=== PATIENT | female | born 1975 | race Caucasian/White ===

== ENCOUNTER 2016-12-24 09:40 | Emergency (ER) | payer OTHER ==
[~2016-12-24] VITALS: Ht 162.6 cm; Wt 68.0 kg
[2016-12-24 09:40] VITALS: BP 119/61
[2016-12-24] MEDS ORDERED: SING5CHW23 PO (09:57)
[2016-12-24] MEDS ORDERED: ZOLO50TA PO (09:57)
[2016-12-24 11:11] LABS: BASO % 0.3 % (0.0-1.0); EOS # 0.1 10^3/uL (0.0-0.50); EOS % 1.1 % (0.0-3.0); IMMATURE GRANULOCYTE % 0.2 % (0-0); LYMPH % 19.4 % (24.0-44.0); MEAN CORPUSCULAR HEMOGLOBIN 26.2 pg (27.0-33.0); MEAN CORPUSCULAR HGB CONC 32.6 g/dl (32.0-36.5); MEAN CORPUSCULAR VOLUME 80.2 fl (80.0-96.0); MONO # 0.9 10^3/uL (0.0-0.8); NEUTROPHILS # 7.3 10^3/uL (1.8-7.7); PLATELET COUNT, AUTOMATED 261 10^3/uL (150-450); RED CELL DISTRIBUTION WIDTH 14.6 % (11.5-14.5); WHITE BLOOD COUNT 10.4 10^3/uL (4.0-10.0)
[2016-12-24 11:32] LABS: ALBUMIN 4.1 GM/DL (3.2-5.2); ALBUMIN/GLOBULIN RATIO 1.41 (1.00-1.93); ALKALINE PHOSPHATASE 58 U/L (45-117); ALT/SGPT 24 U/L (12-78); ANION GAP 4 MEQ/L (8-16); AST/SGOT 20 U/L (7-37); BILIRUBIN,TOTAL 0.4 MG/DL (0.2-1.0); BLOOD UREA NITROGEN 10 MG/DL (7-18); CARBON DIOXIDE LEVEL 29 MEQ/L (21-32); CHLORIDE LEVEL 105 MEQ/L (98-107); CREATININE FOR GFR 0.72 MG/DL (0.55-1.02); GLOMERULAR FILTRATION RATE > 60.0 (>58); GLUCOSE, FASTING 83 MG/DL (70-105); POTASSIUM SERUM 4.4 MEQ/L (3.5-5.1); SODIUM LEVEL 138 MEQ/L (136-145)
[2016-12-24] MEDS ORDERED: ISOVUE-370 76% 100ML VIAL (Q9967) As Ordered ONE (11:53)
--- NOTE | 2016-12-24 12:51 | REP ---
CT ABDOMEN AND PELVIS WITH IV CONTRAST: TECHNIQUE: Axial contrast enhanced images from the lung bases to the pubic symphysis using 100 mL Isovue 370 intravenous contrast material with multiplanar reformations. Visualized lung bases demonstrate no evidence of acute infiltrate. The liver, gallbladder, spleen, adrenals, pancreas, and kidneys appear unremarkable. There is no hydronephrosis. There is no abdominal aortic aneurysm. There is no adenopathy, free air or free fluid. I see no bowel wall thickening. There is no evidence of appendicitis. There is a small hiatal hernia. There is a dominant follicle in the left ovary measuring 2 cm in diameter. There is no other evidence of pelvic mass. Urinary bladder appear unremarkable. IMPRESSION: Small hiatal hernia. Dominant follicle left ovary 2 cm in diameter. No bowel wall thickening or appendicitis. No free air or free fluid. Signed by Marcin Otero MD 12/24/2016 04:18 P
== END 2016-12-24 12:42 | disposition home or self-care (01) ==
LOC: EDBD 09:40 → M ED 09:40
DX: R10.9 Unspecified abdominal pain (principal); F41.9 Anxiety disorder, unspecified; J30.2 Other seasonal allergic rhinitis; K44.9 Diaphragmatic hernia without obstruction or gangrene; N83.02 Follicular cyst of left ovary; Z79.899 Other long term (current) drug therapy; Z88.6 Allergy status to analgesic agent; Z88.5 Allergy status to narcotic agent
CPT/HCPCS: 36415; 74177; 80053; 81001; 83690; 85025; 87086; 99284; Q9967

== ENCOUNTER → 2017-06-17 | Outpatient (REF) | payer OTHER ==
[2017-06-20 14:15] LABS: HPV HYBRID CAPTURE II Negative (Negative)
== END ==
LOC: M LAB REF 19:20
DX: Z12.4 Encounter for screening for malignant neoplasm of cervix (principal)

== ENCOUNTER 2018-04-28 22:59 | Emergency (ER) | payer OTHER ==
[~2018-04-28] VITALS: Ht 162.6 cm; Wt 68.2 kg
[~2018-04-28 22:59] MED LIST: SING5CHW23 PO; ZOLO50TA PO
[2018-04-28 23:27] LABS: HEMOGLOBIN 9.8 g/dl (12.0-15.5); MEAN CORPUSCULAR HEMOGLOBIN 23.4 pg (27.0-33.0); MEAN CORPUSCULAR HGB CONC 31.6 g/dl (32.0-36.5); PLATELET COUNT, AUTOMATED 340 10^3/uL (150-450); RED BLOOD COUNT 4.19 10^6/uL (4.00-5.40); WHITE BLOOD COUNT 12.8 10^3/uL (4.0-10.0)
[2018-04-28] MEDS ORDERED: GI COCKTAIL 50ML BTL(HYOSCYAMINE/MAALOX/LIDOCAINE VISCOUS)(1:3:1) PO ONE (23:30)
[2018-04-28 23:37] LABS: INR 0.91; PROTHROMBIN TIME 12.3 SECONDS (12.1-14.4)
[2018-04-28 23:38] LABS: PARTIAL THROMBOPLASTIN TIME 25.9 SECONDS (25.4-37.6)
[2018-04-28 23:40] LABS: D-DIMER QUANT 335.76 ng/ml (<500)
[2018-04-28 23:47] LABS: ANISOCYTOSIS 1+; ATYPICAL LYMPH 4 % (0-5); EOSINOPHILS 4 % (0-5); LYMPHOCYTES 36 % (16-52); MONOCYTES 5 % (0-8); NEUTROPHILS 51 % (35-75); PLATELET ESTIMATE NORMAL (NORMAL)
[2018-04-28 23:58] LABS: ALBUMIN 3.8 GM/DL (3.2-5.2); ALT/SGPT 16 U/L (12-78); BILIRUBIN,DIRECT < 0.1 MG/DL (0.0-0.2); BILIRUBIN,TOTAL 0.2 MG/DL (0.2-1.0); BLOOD UREA NITROGEN 16 MG/DL (7-18); CALCIUM LEVEL 8.8 MG/DL (8.5-10.1); CARBON DIOXIDE LEVEL 27 MEQ/L (21-32); CHLORIDE LEVEL 109 MEQ/L (98-107); CK-MB VALUE MASS < 1.0 NG/ML (<3.6); CPK CREATINE PHOSPHOKINASE 88 U/L (26-192); CREATININE FOR GFR 1.14 MG/DL (0.55-1.30); FREE T4 0.93 NG/DL (0.76-1.46); GLOMERULAR FILTRATION RATE 54.9 (>58); GLUCOSE, FASTING 87 MG/DL (70-100); LIPASE 250 U/L (73-393); MB/CK RELATIVE INDEX 1.14 (< OR =4); POTASSIUM SERUM 3.9 MEQ/L (3.5-5.1); SODIUM LEVEL 141 MEQ/L (136-145); TOTAL PROTEIN 7.2 GM/DL (6.4-8.2); TROPONIN I < 0.02 NG/ML (< 0.10)
[2018-04-29] MEDS ORDERED: KETOROLAC 30 MG/ML VIAL (J1885) IV ONE (00:15)
[2018-04-29] MEDS ORDERED: ISOVUE-370 76% 125ML VIAL (Q9967 PER ML) As Ordered ONE (00:35)
[2018-04-29] MEDS ORDERED: HYDROMORPHONE HCL 0.5 MG/ 0.5 ML SYRINGE (J1170 PER 1) IV ONE (00:45)
--- NOTE | 2018-04-29 01:42 | REPVR ---
EXAM: CT Angiography Chest With Contrast EXAM DATE/TIME: 04/29/2018 12:01 AM CLINICAL HISTORY: 43 years old, female; Pain; Chest pain; Type not specified; Additional info: Pain, shortness of breath TECHNIQUE: Axial computed tomographic angiography images of the chest with intravenous contrast using CT angiography protocol. All CT scans at this facility use at least one of these dose optimization techniques: automated exposure control; mA and/or kV adjustment per patient size (includes targeted exams where dose is matched to clinical indication); or iterative reconstruction. Coronal and sagittal reformatted images were created and reviewed. MIP reconstructed images were created and reviewed. COMPARISON: CR PORTABLE CHEST X-RAY 04/28/2018 11:41 PM FINDINGS: No focal pulmonary artery filling defect to suggest acute pulmonary embolus. No thoracic aortic aneurysm or dissection. No pleural effusion or pneumothorax. Pulmonary vascular/interstitial pattern does not suggest active pulmonary edema. No suspicious lung mass or air space process. No central endobronchial lesion. Limited visualization of upper abdomen shows no concerning finding. Bony structures show no acute fracture or destructive process. IMPRESSION: No evidence of acute pulmonary embolus. No other acute or concerning focal intrathoracic abnormality. Electronically signed by: Sampson Becker On 04/29/2018 01:41:27 AM
[2018-04-29] MEDS ORDERED: CYCLOBENZAPRINE 10 MG TAB PO ONE (02:00)
[2018-04-29] MEDS ORDERED: CYCL10TA PO (02:07)
[2018-04-29] MEDS ORDERED: IBUP-1114 PO (02:07)
[2018-04-29 02:12] LABS: FERRITIN 4 NG/ML (8-252); IRON (FE) 24 UG/DL (50-170); PERCENT SATURATION 6.2 % (13.2-45.0); TOTAL IRON BINDING CAPACITY 387 UG/DL (250-450)
[2018-04-29 02:15] VITALS: BP 102/57
--- NOTE | 2018-04-29 03:08 | REP ---
Clinical: Acute chest pain . Comparison: None . Findings: The mediastinum and cardiac silhouette are stable and within normal limits for portable technique. The lung hanley are clear without acute consolidation, effusion, or pneumothorax. Skeletal structures are intact. Impression: No acute cardiopulmonary process appreciated. Electronically Signed by Karri Tolbert MD 04/29/2018 03:00 A
--- NOTE | 2018-04-29 08:58 | ECGEPIP ---
Stationary ECG Study [facility] - ED Test Date: 2018-04-28 Pat Name: JF SCOTT Department: Room: - Gender: F Product Analyst: melyssa : 1975 Requested By: RICKEY Rivera Order Number: [id number] Reading MD: Rancho Mccullough Measurements Intervals [place] Rate: 58 P: 64 [place]: 142 QRS: -3 QRSD: 79 T: 29 QT: 413 QTc: 409 Interpretive Statements SINUS BRADYCARDIA INCOMPLETE RIGHT BUNDLE BRANCH BLOCK NO PRIORS FOR COMPARISON Electronically Signed On 04-29-2018 8:57:56 EDT by Rancho Mccullough
== END 2018-04-29 02:46 | disposition home or self-care (01) ==
LOC: M ED 22:59
DX: R07.89 Other chest pain (principal); R00.1 Bradycardia, unspecified; I45.19 Other right bundle-branch block; F41.9 Anxiety disorder, unspecified; J30.2 Other seasonal allergic rhinitis; Z79.899 Other long term (current) drug therapy; Z88.6 Allergy status to analgesic agent; Z88.5 Allergy status to narcotic agent
CPT/HCPCS: 71045; 71275; 80048; 80076; 82550; 82553; 82728; 83550; 83690; 84439; 84443; 84484; 85025; 85379; 85610; 85730; 93005; 93041; 94760; 96374; 99285; J1885; Q9967

== ENCOUNTER → 2018-07-23 | Outpatient (REF) | payer OTHER ==
[~2018-07-23] MED LIST changes: +CYCL10TA PO; +IBUP-1114 PO
[2018-07-26 00:07] LABS: HPV HYBRID CAPTURE II Negative (Negative)
== END ==
LOC: M LAB REF 16:59
PROVIDERS: ATTEND Obstetrics & Gynecology
DX: N92.0 Excessive and frequent menstruation with regular cycle (principal)
CPT/HCPCS: 87624; 88304; G0123

== ENCOUNTER 2018-08-26 09:10 | Day surgery (SDC) | payer OTHER ==
[~2018-08-26] VITALS: Ht 162.6 cm; Wt 69.6 kg
[~2018-08-26 09:10] MED LIST changes: +CVS1CAP2 PO; +CVS5000S2 PO; +KETOROLAC 60 MG/2 ML VIAL (J1885) As Ordered ONE; +LEVOTAB10 PO; +LIDOCAINE 2% INJ 100 MG/5 ML SDV (FOR ANES.) As Ordered ONE; +MAGN400C2 PO; +MIDAZOLAM INJ 2 MG/2 ML VIAL (J2250) As Ordered ONE; +ONDANSETRON 4MG/2ML VIAL (J2405) As Ordered ONE; +ROCURONIUM BROMIDE 50 MG/5 ML VIAL As Ordered ONE; +VITA400T15 PO; +dexameTHASONE 4 MG/ML 1ML VIAL (J1100) As Ordered ONE; +fentaNYL 250 MCG/5 ML INJECTION (J3010) As Ordered ONE; +propofoL 200 MG/20 ML VIAL As Ordered ONE
[2018-08-26] MEDS ORDERED: ceFAZolin 2 GM/D5W 50 ML IV BAG (J0690 PER 500MG) As Ordered ONE (09:20)
[2018-08-26 09:42] LABS: HEMATOCRIT 33.2 % (36.0-47.0); HEMOGLOBIN 10.3 g/dl (12.0-15.5); MEAN CORPUSCULAR HEMOGLOBIN 22.7 pg (27.0-33.0); MEAN CORPUSCULAR VOLUME 73.1 fl (80.0-96.0); PLATELET COUNT, AUTOMATED 321 10^3/uL (150-450); RED BLOOD COUNT 4.54 10^6/uL (4.00-5.40); WHITE BLOOD COUNT 6.6 10^3/uL (4.0-10.0)
[2018-08-26] MEDS ORDERED: METHYLENE BLUE 0.5% (5MG/ML) 10 ML AMP (PROVAYBLUE)(Q9968 PER 1MG) As Ordered ONE (11:16)
[2018-08-26] MEDS ORDERED: BUPIVACAINE HCL 0.25% 30 ML VIAL As Ordered ONE (11:16)
[2018-08-26] MEDS ORDERED: SUGAMMADEX SODIUM 500 MG/5 ML VIAL (BRIDION) As Ordered ONE (13:16)
[2018-08-26] MEDS: fentaNYL 100 MCG/2 ML INJECTION (J3010) IV PRN ×2 (13:45→14:11)
[2018-08-26] MEDS ORDERED: ONDANSETRON 4MG/2ML VIAL (J2405) As Ordered ONE (13:57)
[2018-08-26] MEDS ORDERED: fentaNYL 100 MCG/2 ML INJECTION (J3010) As Ordered ONE (13:57)
[2018-08-26] MEDS ORDERED: TRAM50TA2 PO (13:58)
[2018-08-26] MEDS ORDERED: IBUP-1022 PO (13:58)
[2018-08-26] MEDS ORDERED: ONDANSETRON 4MG/2ML VIAL (J2405) IV PRN (14:15)
[2018-08-26] MEDS ORDERED: LR 1,000 ML IV SCH (14:15)
[2018-08-26] MEDS ORDERED: traMADol 50 MG TAB As Ordered ONE (15:44)
[2018-08-26 16:00] VITALS: BP 107/62
[2018-08-26] MEDS ORDERED: traMADol 50 MG TAB PO PRN (16:00)
[2018-08-26] MEDS ORDERED: KETOROLAC 30 MG/ML VIAL (J1885) IV SCH (19:00)
--- NOTE | 2018-08-26 22:52 | RO ---
DATE OF PROCEDURE: 08/26/2018 PREOPERATIVE DIAGNOSIS: Abnormal uterine bleeding. POSTOPERATIVE DIAGNOSIS: Abnormal uterine bleeding. PROCEDURE PERFORMED: 1. Robotic-assisted laparoscopic hysterectomy. 2. Bilateral salpingectomy. 3. Cystoscopy. SURGEON: Nathaly Ortega MD ASSISTANTS: Hetal Buchanan NP and Resident Gissell Harrington MD, PGY-3 ANESTHESIA: General endotracheal anesthesia. ESTIMATED BLOOD LOSS: 50 mL. INTRAVENOUS FLUIDS: 800 mL lactated Ringer's solution. URINE OUTPUT: 150 mL. PREOPERATIVE ANTIBIOTICS: 2 grams of Ancef. INFECTION CLASSIFICATION: 2. SPECIMENS: Uterus, cervix, bilateral fallopian tube. OPERATIVE FINDINGS: Patient with normal pelvic anatomy. Cystoscopic findings revealed normal bladder mucosa, bilateral ureteral jets were observed. No foreign bodies or objects on cystoscopy. DESCRIPTION OF OPERATION: After informed consent was obtained and written consent was reviewed, the patient brought to the operating room where she was placed under general endotracheal anesthesia. She was then placed in the lithotomy position and was prepped and draped in a normal sterile fashion. A time-out in the operating room was performed identifying the patient, procedure to be performed as well as drug allergies. A speculum was then placed revealing the cervix. Anterior and posterior aspect of the cervix was stitched with #0 Vicryl. A medium VCare uterine manipulator was then advanced through cervical os, and it was insufflated with 7 mL of air. The cervical cap as well as the vaginal sleeve was advanced down to the vagina. Speculum was then removed. Pedroza catheter was placed and set to gravity. Gloves were changed, and attention was turned to the patient's abdomen where a Veress needle was placed in the umbilicus. A pneumoperitoneum was obtained with CO2 gas. The supraumbilical area was infused 0.25% Marcaine. An incision was made in this area and an 8 mm trocar and sleeve was advanced through this incision. The laparoscope was then replaced, revealing intra-abdominal placement. Three additional port sites were placed; one to the patient's right side and two to the patient's left side and umbilicus. Each one of these areas were infused with 0.25% Marcaine. Incisions were made in each one of these areas and 8 mm trocar and sleeve was advanced through each one of these incision under direct visualization. Next, the Da Rock was docked utilizing the camera arm and two operative arms. Next, the mesosalpinx bilaterally were cauterized and ligated with good hemostasis noted. The utero-ovarian ligaments bilaterally were cauterized and ligated with good hemostasis noted. The round ligaments on both sides were cauterized and ligated with good hemostasis noted. Next, the anterior lip of the broad ligaments was then dissected along the bladder, creating a bladder flap. The remainder of the broad and cardinal ligaments were then cauterized and ligated with good hemostasis noted. The uterine vessels were then skeletonized bilaterally, cauterized and ligated with good hemostasis noted using a vessel sealer. Next, utilizing Endo monopolar scissors, anterior and posterior colpotomies were made and the uterus was detached. The specimen was then brought out vaginally. Surgical sites were inspected and noted be hemostatic. The vaginal cuff was then closed with an 0 V-Loc suture in a running nonlocking fashion. Surgical sites were irrigated and suctioned. Alis was then applied over the surgical field. The Da [place] was then undocked, Pedroza catheter was removed, and a cystoscopy was performed. The cystoscope was advanced transurethrally through the bladder and cystoscopy was performed showing normal bladder mucosa. No foreign objects were observed. Bilateral jets were also observed. The cystoscope was then removed, the bladder was then drained. Attention was then turned to the patient's abdomen where all four port sites were closed with #4-0 Monocryl and was dressed with Dermabond. The patient was then taken out of the lithotomy position, was awakened from general anesthesia and taken to recovery in stable condition. Hetal Buchanan, my surgical sales representative, played an essential role during surgery. She assisted with port placement, manipulation of the uterus, as well as removal of the uterus and port closure. CHARLES
== END 2018-08-26 16:20 | disposition home or self-care (01) ==
LOC: M SDC 09:10
PROVIDERS: ATTEND Obstetrics & Gynecology
DX: N92.6 Irregular menstruation, unspecified (principal); N72 Inflammatory disease of cervix uteri; D64.9 Anemia, unspecified; F41.9 Anxiety disorder, unspecified; Z79.899 Other long term (current) drug therapy; Z88.6 Allergy status to analgesic agent
CPT/HCPCS: 36415; 58571; 85027; 86850; 86900; 86901; 88307; J1885; J2250; J2405; J3010

== ENCOUNTER → 2020-12-04 | Outpatient (CLI) | payer OTHER ==
[~2020-12-04] MED LIST changes: +CYCL-707 PO; -CYCL10TA PO; +IBUP-1022 PO; -KETOROLAC 60 MG/2 ML VIAL (J1885) As Ordered ONE; -LIDOCAINE 2% INJ 100 MG/5 ML SDV (FOR ANES.) As Ordered ONE; -MIDAZOLAM INJ 2 MG/2 ML VIAL (J2250) As Ordered ONE; -ONDANSETRON 4MG/2ML VIAL (J2405) As Ordered ONE; -ROCURONIUM BROMIDE 50 MG/5 ML VIAL As Ordered ONE; +TRAM50TA2 PO; -dexameTHASONE 4 MG/ML 1ML VIAL (J1100) As Ordered ONE; -fentaNYL 250 MCG/5 ML INJECTION (J3010) As Ordered ONE; -propofoL 200 MG/20 ML VIAL As Ordered ONE
[2020-12-04 12:05] LABS: ALBUMIN 3.8 GM/DL (3.2-5.2); ALT/SGPT 21 U/L (12-78); BILIRUBIN,TOTAL 0.4 MG/DL (0.2-1.0); BLOOD UREA NITROGEN 11 MG/DL (7-18); CARBON DIOXIDE LEVEL 31 MEQ/L (21-32); CHLORIDE LEVEL 107 MEQ/L (98-107); CHOLESTEROL LEVEL 172 MG/DL (<200); CHOLESTEROL RISK RATIO 3.071 (<5); CREATININE FOR GFR 0.68 MG/DL (0.55-1.30); FREE T4 0.95 NG/DL (0.76-1.46); GLOMERULAR FILTRATION RATE > 60.0 (>58); GLUCOSE, FASTING 84 MG/DL (70-100); HDL CHOLESTEROL 56 MG/DL (>40); LDL CHOLESTEROL 107 MG/DL (<100); NON-HDL-C 116 MG/DL; POTASSIUM SERUM 4.1 MEQ/L (3.5-5.1); SODIUM LEVEL 142 MEQ/L (136-145); TOTAL PROTEIN 7.1 GM/DL (6.4-8.2); TRIGLYCERIDES LEVEL 47 MG/DL (<150)
== END ==
LOC: M LAB 11:12
PROVIDERS: ATTEND Nurse Practitioner Family
DX: Z00.00 Encounter for general adult medical examination without abnormal findings (principal); F41.1 Generalized anxiety disorder

== ENCOUNTER → 2021-07-14 | Outpatient (CLI) | payer OTHER | LOC: M WHC 16:11 | PROVIDERS: ATTEND Nurse Practitioner Family | DX: Z12.31 Encounter for screening mammogram for malignant neoplasm of breast (principal) ==

== ENCOUNTER → 2021-12-23 | Outpatient (CLI) | payer OTHER ==
[2021-12-23 11:03] LABS: ALBUMIN 3.7 GM/DL (3.2-5.2); ALT/SGPT 23 U/L (12-78); BILIRUBIN,TOTAL 0.3 MG/DL (0.2-1.0); BLOOD UREA NITROGEN 12 MG/DL (7-18); CALCIUM LEVEL 9.1 MG/DL (8.5-10.1); CARBON DIOXIDE LEVEL 27 MEQ/L (21-32); CHLORIDE LEVEL 105 MEQ/L (98-107); CHOLESTEROL LEVEL 165 MG/DL (<200); CREATININE FOR GFR 0.73 MG/DL (0.55-1.30); GLOMERULAR FILTRATION RATE > 60.0 (>58); GLUCOSE, FASTING 81 MG/DL (70-100); HDL CHOLESTEROL 55 MG/DL (>40); LDL CHOLESTEROL 97 MG/DL (<100); NON-HDL-C 110 MG/DL; POTASSIUM SERUM 4.3 MEQ/L (3.5-5.1); SODIUM LEVEL 137 MEQ/L (136-145); TOTAL PROTEIN 7.1 GM/DL (6.4-8.2); TRIGLYCERIDES LEVEL 66 MG/DL (<150)
== END ==
LOC: M LAB 09:33
PROVIDERS: ATTEND Nurse Practitioner Family
DX: Z00.00 Encounter for general adult medical examination without abnormal findings (principal)

== ENCOUNTER → 2022-01-20 | Outpatient (CLI) | payer OTHER ==
[2022-01-20 10:20] LABS: BASO % 0.5 % (0.0-1.0); EOS # 0.2 10^3/uL (0.0-0.5); EOS % 2.1 % (0.0-3.0); HEMATOCRIT 40.7 % (36.0-47.0); HEMOGLOBIN 13.1 g/dl (12.0-15.5); LYMPH % 26.9 % (24.0-44.0); MEAN CORPUSCULAR HEMOGLOBIN 28.4 pg (27.0-33.0); MEAN CORPUSCULAR HGB CONC 32.2 g/dl (32.0-36.5); MEAN CORPUSCULAR VOLUME 88.1 fl (80.0-96.0); MONO # 0.8 10^3/uL (0.0-0.8); MONO % 11.1 % (2.0-8.0); NEUTROPHILS # 4.5 10^3/uL (1.5-8.5); NEUTROPHILS % 59.1 % (36.0-66.0); PLATELET COUNT, AUTOMATED 291 10^3/uL (150-450); RED BLOOD COUNT 4.62 10^6/uL (4.00-5.40); WHITE BLOOD COUNT 7.5 10^3/uL (4.0-10.0)
[2022-01-20 10:36] LABS: C REACTIVE PROTEIN QUANTITATIV 0.4 MG/DL (<1.0); MAGNESIUM LEVEL 2.1 MG/DL (1.8-2.4)
[2022-01-20 10:38] LABS: FREE T4 0.97 NG/DL (0.89-1.76); THYROID STIMULATING HORMONE 2.464 uIU/ML (0.55-4.78)
[2022-01-20 10:59] LABS: ERYTHROCYTE SEDIMENTATION RATE 9 mm/hr (0-20)
== END ==
LOC: M LAB 09:25
PROVIDERS: ATTEND Nurse Practitioner Family
DX: R07.89 Other chest pain (principal)

== ENCOUNTER → 2023-05-03 | Outpatient (CLI) | payer OTHER ==
[~2023-05-03] MED LIST changes: +MONT5TAB7 PO; -SING5CHW23 PO
== END ==
LOC: M RAD 08:22
PROVIDERS: ATTEND Nurse Practitioner Family
DX: R10.11 Right upper quadrant pain (principal)

== ENCOUNTER → 2023-06-27 | Outpatient (CLI) | payer OTHER ==
[2023-06-27 17:10] LABS: BASO % 0.4 % (0.0-1.0); EOS # 0.3 10^3/uL (0.0-0.5); EOS % 3.3 % (0.0-3.0); HEMATOCRIT 37.7 % (36.0-47.0); HEMOGLOBIN 12.4 g/dl (12.0-15.5); MEAN CORPUSCULAR HEMOGLOBIN 28.6 pg (27.0-33.0); MEAN CORPUSCULAR HGB CONC 32.9 g/dl (32.0-36.5); MEAN CORPUSCULAR VOLUME 87.1 fl (80.0-96.0); MONO # 0.7 10^3/uL (0.0-0.8); MONO % 8.5 % (2.0-8.0); NEUTROPHILS # 3.9 10^3/uL (1.5-8.5); NEUTROPHILS % 49.5 % (36.0-66.0); PLATELET COUNT, AUTOMATED 243 10^3/uL (150-450); RED BLOOD COUNT 4.33 10^6/uL (4.00-5.40); WHITE BLOOD COUNT 7.9 10^3/uL (4.0-10.0)
[2023-06-27 19:42] LABS: ALBUMIN 3.9 G/DL (3.2-5.2); ALKALINE PHOSPHATASE 85 U/L (46-116); ALT/SGPT 21 U/L (7.0-40); AST/SGOT 23 U/L (<34); BILIRUBIN,TOTAL 0.2 MG/DL (0.3-1.2); BLOOD UREA NITROGEN 16 MG/DL (9-23); CALCIUM LEVEL 9.5 MG/DL (8.5-10.1); CARBON DIOXIDE LEVEL 31 MMOL/L (20-31); CHLORIDE LEVEL 105 MMOL/L (98-107); GLOMERULAR FILTRATION RATE > 60.0 (>51); GLUCOSE, FASTING 93 MG/DL (60-100); POTASSIUM SERUM 3.7 MMOL/L (3.5-5.1); SODIUM LEVEL 141 MMOL/L (136-145); TOTAL PROTEIN 6.7 G/DL (5.7-8.2)
== END ==
LOC: M LAB 16:43
PROVIDERS: ATTEND Nurse Practitioner Family
DX: Z01.818 Encounter for other preprocedural examination (principal)

== ENCOUNTER 2023-07-19 09:31 | Day surgery (SDC) | payer OTHER ==
[~2023-07-19] VITALS: Ht 162.6 cm; Wt 72.9 kg
[~2023-07-19 09:31] MED LIST changes: +FAMO20TA4 PO; +VITA100093 PO
[2023-07-19] MEDS ORDERED: LIDOCAINE 2% 100MG/5ML SDV (FOR ANES.) As Ordered ONE (10:28)
[2023-07-19] MEDS ORDERED: MIDAZOLAM INJ 2MG/2ML VIAL As Ordered ONE (10:28)
[2023-07-19] MEDS ORDERED: KETOROLAC 60MG 2ML VIAL As Ordered ONE (10:28)
[2023-07-19] MEDS ORDERED: SUGAMMADEX SODIUM 500 MG/5 ML VIAL (BRIDION) As Ordered ONE (10:28)
[2023-07-19] MEDS ORDERED: fentaNYL 250 MCG/5 ML INJECTION As Ordered ONE (10:28)
[2023-07-19] MEDS ORDERED: propofoL 200 MG/20 ML VIAL As Ordered ONE (10:28)
[2023-07-19] MEDS ORDERED: ONDANSETRON 4MG 2ML VIAL As Ordered ONE (10:28)
[2023-07-19] MEDS ORDERED: ROCURONIUM BROMIDE 50MG/5ML VIAL As Ordered ONE (10:28)
[2023-07-19] MEDS ORDERED: dexmedeTOMIDine (4MCG/ML)200MCG/50ML BTL (PRECEDEX) As Ordered ONE (10:40)
[2023-07-19] MEDS ORDERED: LACRILUBE (AKWA TEARS) OPHTH OINT 3.5GM As Ordered ONE (10:45)
[2023-07-19] MEDS ORDERED: ACETAMINOPHEN 1000MG 100ML IV BAG As Ordered ONE (10:45)
[2023-07-19] MEDS: LR 1,000 ML IV SCH (10:51)
[2023-07-19] MEDS: SCOPOLAMINE 1MG TRANSDERMAL PATCH TOP ONE (10:51)
[2023-07-19] MEDS ORDERED: PHENYLephrine 500MCG 5ML (100MCG/ML) SYRINGE As Ordered ONE (11:57)
[2023-07-19] MEDS ORDERED: GLYCOPYRROLATE INJ 0.2 MG/ML 2 ML VIAL As Ordered ONE (11:59)
[2023-07-19] MEDS ORDERED: ePHEDrine SULFATE 25 MG/5 ML(5MG/ML) SYRINGE As Ordered ONE (12:14)
[2023-07-19] MEDS: MORPHINE 2 MG/ML 1ML VIAL IV PRN (13:09)
[2023-07-19] MEDS: ONDANSETRON 4MG 2ML VIAL IV PRN (13:10)
[2023-07-19] MEDS: fentaNYL 100 MCG/2 ML INJECTION IV PRN (13:17)
[2023-07-19] MEDS: traMADol 50 MG TAB PO ONE (13:48)
[2023-07-19 14:30] VITALS: BP 143/76; TEMP 97.8; O2SAT 96
[2023-07-19] MEDS ORDERED: traMADol 50 MG TAB PO PRN (18:00)
== END 2023-07-19 15:13 | disposition home or self-care (01) ==
LOC: M SDC 09:31
PROVIDERS: ATTEND Surgery
DX: K82.8 Other specified diseases of gallbladder (principal); J30.2 Other seasonal allergic rhinitis; Z88.5 Allergy status to narcotic agent
CPT/HCPCS: 47562; 88304; J0131; J0665; J1100; J1885; J2250; J2371; J2405; J3010; S2900

== ENCOUNTER → 2023-08-05 | Outpatient (CLI) | payer OTHER ==
[~2023-08-05] MED LIST changes: +ISOVUE-370 76% 100ML VIAL As Ordered ONE
== END ==
LOC: M RAD 08:58
PROVIDERS: ATTEND Surgery
DX: R10.11 Right upper quadrant pain (principal)
CPT/HCPCS: 74177; Q9967

== ENCOUNTER → 2023-08-14 | Outpatient (CLI) | payer OTHER ==
[~2023-08-14] MED LIST changes: -ISOVUE-370 76% 100ML VIAL As Ordered ONE
== END ==
LOC: M RAD 11:39
PROVIDERS: ATTEND Surgery
DX: R10.84 Generalized abdominal pain (principal)

== ENCOUNTER 2023-09-11 06:52 | Day surgery (SDC) | payer OTHER ==
[~2023-09-11] VITALS: Ht 162.6 cm; Wt 69.9 kg
[~2023-09-11 06:52] MED LIST changes: +THERTAB52 PO
[2023-09-11] MEDS: NS 1,000 ML IV ONE (07:06)
[2023-09-11] MEDS ORDERED: propofoL 200 MG/20 ML VIAL As Ordered ONE (07:38)
[2023-09-11] MEDS ORDERED: LIDOCAINE 2% 100MG/5ML SDV (FOR ANES.) As Ordered ONE (07:38)
[2023-09-11 07:53] VITALS: TEMP 97.8
[2023-09-11 08:20] VITALS: BP 113/65; O2SAT 96
== END 2023-09-11 08:42 | disposition home or self-care (01) ==
LOC: M OPP 06:52
PROVIDERS: ATTEND Surgery
DX: Z12.11 Encounter for screening for malignant neoplasm of colon (principal); Z79.1 Long term (current) use of non-steroidal anti-inflammatories (NSAID); Z79.899 Other long term (current) drug therapy; Z88.5 Allergy status to narcotic agent

== ENCOUNTER → 2023-12-19 | Outpatient (CLI) | payer OTHER | LOC: M PLAIMG 14:01 | PROVIDERS: ATTEND Nurse Practitioner Family | DX: J20.9 Acute bronchitis, unspecified (principal) ==